=== PATIENT | female | born 1990 | race Asian ===

== ENCOUNTER 2024-01-31 08:24 | Day surgery (SDC) | payer OTHER ==
[~2024-01-31] VITALS: Ht 162.6 cm; Wt 65.8 kg
[2024-01-31] VITALS (13 sets, daily range): BP systolic 90–112; BP diastolic 50–77; PULSE 54–77; RESP 15–19
[2024-01-31] MEDS: 0.9%NACL 1000ML 1,000 ML IV ONE (09:46)
[2024-01-31] MEDS ORDERED: PROPOFOL 10 MG/ML 20ML VIAL IV ONE ×2 (10:40→10:48)
== END 2024-01-31 12:17 | disposition home or self-care (01) ==
LOC: DAH 08:24 → ENDO 08:24
PROVIDERS: ATTEND Internal Medicine Gastroenterology
DX: K58.0 Irritable bowel syndrome with diarrhea (principal); K29.80 Duodenitis without bleeding; K29.60 Other gastritis without bleeding; K31.89 Other diseases of stomach and duodenum; R10.13 Epigastric pain; Z79.01 Long term (current) use of anticoagulants; Z88.8 Allergy status to other drugs, medicaments and biological substances; Z83.3 Family history of diabetes mellitus; Z82.49 Family history of ischemic heart disease and other diseases of the circulatory system; Z98.51 Tubal ligation status
CPT/HCPCS: 81025; 43239; 45380; J7030 ×2; J2704 ×2; A4620; A7002; J3490